=== PATIENT | female | born 1975 | race Hispanic/Latino ===

== ENCOUNTER 2017-08-17 06:23 | Day surgery (SDC) | payer BC ==
[2017-08-16 09:25] VITALS: BP 134/59
[2017-08-17] VITALS (13 sets, daily range): BP systolic 98–128; BP diastolic 43–76
[~2017-08-17] VITALS: Ht 162.6 cm; Wt 90.6 kg
[~2017-08-17 06:23] MED LIST: CEFAZOLIN SODIUM 1 GM VIAL IVP SCH; LEVO100T4 PO
[2017-08-17] MEDS ORDERED: LACTATED RINGERS 1000ML 1,000 ML IV ONE (06:53)
[2017-08-17] MEDS ORDERED: NEOMY SULF/POLYMYXIN B SULFATE 1 ML AMPUL IR ONE (07:14)
[2017-08-17] MEDS ORDERED: MIDAZOLAM HCL 1 MG/ML 2ML VIAL ONE (07:22)
[2017-08-17] MEDS ORDERED: PROPOFOL 10 MG/ML 20ML VIAL IV ONE (07:22)
[2017-08-17] MEDS ORDERED: FENTANYL CITRATE PF 50 MCG/1 ML 2ML VIAL ONE ×2 (07:23→08:38)
[2017-08-17] MEDS ORDERED: BUPIVACAINE/EPI/PF 0.25% 30ML VIAL IJ SCH (07:30)
[2017-08-17] MEDS ORDERED: BUPIVACAINE/EPI/PF 0.5% 30ML VIAL IJ SCH (08:00)
[2017-08-17] MEDS ORDERED: ONDANSETRON HCL MDV 20ML 2 MG/ML VIAL ONE ×3 (08:25→10:31)
[2017-08-17] MEDS ORDERED: NEOSTIGMINE 5MG/5ML SYR IV ONE (08:25)
[2017-08-17] MEDS ORDERED: GLYCOPYRROLATE 0.2 MG/ML 5 ML VIAL ONE (08:25)
[2017-08-17] MEDS ORDERED: LIDOCAINE PF 2% 5ML ABBOJECT ONE (08:25)
[2017-08-17] MEDS ORDERED: ROCURONIUM BROMIDE 10MG/1ML 5ML VL ONE (08:25)
[2017-08-17] MEDS ORDERED: DEXAMETHASONE SOD PHOSPHATE 4 MG/ML 1ML VIAL ONE (09:15)
[2017-08-17] MEDS ORDERED: MEPERIDINE-PF 25 MG/ML SYG ONE (09:34)
== END 2017-08-17 10:45 | disposition home or self-care (01) ==
LOC: DAH 06:23 → EDSEX 14:15
PROVIDERS: ATTEND Surgery
DX: K43.0 Incisional hernia with obstruction, without gangrene (principal); Z68.35 Body mass index [BMI] 35.0-35.9, adult; E07.9 Disorder of thyroid, unspecified; Z90.49 Acquired absence of other specified parts of digestive tract; Z82.49 Family history of ischemic heart disease and other diseases of the circulatory system; Z79.899 Other long term (current) drug therapy
CPT/HCPCS: 49561; A4218; A4450; A4452; A4510; A4606; G0168; J0690; J1100; J2001; J2175; J2250; J2704; J2710; J3010 ×2; J3490 ×4; J7120 ×2